=== PATIENT | female | born 1970 | race Caucasian/White ===

== ENCOUNTER 2016-03-09 18:48 | Emergency (ER) | payer OTHER ==
[~2016-03-09] VITALS: Wt 86.2 kg
[~2016-03-09 18:48] MED LIST: ANAPROX DS550 MG PO; AUGMENTIN 875 M1 TAB PO; BACTRIM DS 8001 TA1 PO; CETIRIZINE10 MG PO; CHEWABLE ASPIRI81 MG PO; CIPRO500 MG PO; CIPROFLOXACIN500 MG PO; CLARITIN-D 12 H1 TAB PO; CLARITIN10 MG PO; CORTISPORIN 1%-10 M1 OT; DAYPRO600 M1 PO; DIFLUCAN150 MG PO; DOXYCYCLINE HY100 M3 PO; DOXYCYCLINE MO100 MG PO; DOXYCYCLINE100 M4 PO; DOXYCYCLINE50 MG PO; DUONEB 3 MG/3 ML3 M1 INH; EES400 MG PO; FLONASE 0.05% 121 EA NAS; IBU800 M1 PO; LOTRIMIN 1%15 GM TP; MACROBID100 M1 PO; MOBIC15 MG PO; MOBIC7.5 MG PO; MOTRIN600 MG PO; MOTRIN800 MG PO; Motrin,Rufen800 MG PO; NAPROXEN550 MG PO; NIACIN ER500 MG PO; PHENERGAN W/ DE30 ML PO; PHENERGAN W/DM120 ML PO; PREDNICOT10 MG PO; PROAIR HFA0.09 MG/AC INH; ROBAXIN750 MG PO; SIMVASTATIN20 MG PO; SINGULAIR10 MG PO; TRAMADOL HCL50 MG PO; VITAMINS; ZITHROMAX Z PA250 MG PO; ZITHROMAX250 MG PO; Zofran4 MG PO
[2016-03-09] MEDS ORDERED: PREDNISONE10 MG PO (18:56)
[2016-03-09] MEDS ORDERED: CLARITIN-D 12 H1 TAB PO (19:35)
[2016-03-09] MEDS ORDERED: ZITHROMAX250 MG PO (19:35)
[2016-03-13] MEDS ORDERED: BACTRIM DS 8001 TA1 PO (18:57)
== END 2016-03-09 19:44 | disposition home or self-care (01) ==
LOC: ED 18:48
DX: J01.01 Acute recurrent maxillary sinusitis (principal); Z88.0 Allergy status to penicillin; Z88.8 Allergy status to other drugs, medicaments and biological substances; Z90.710 Acquired absence of both cervix and uterus

== ENCOUNTER 2016-06-29 15:45 | Emergency (ER) | payer OTHER ==
[~2016-06-29] VITALS: Ht 157.4 cm; Wt 86.2 kg
[~2016-06-29 15:45] MED LIST changes: +PREDNISONE10 MG PO
[2016-06-29] MEDS ORDERED: MEDROL DOSEPAK4 MG PO (17:01)
[2016-06-29] MEDS ORDERED: CYCLOBENZAPRINE10 MG PO (17:01)
[2016-06-29] MEDS ORDERED: NAPROSYN500 MG PO (17:01)
== END 2016-06-29 17:19 | disposition home or self-care (01) ==
LOC: ED 15:45
DX: S39.012A Strain of muscle, fascia and tendon of lower back, initial encounter (principal); Z88.0 Allergy status to penicillin; Z88.8 Allergy status to other drugs, medicaments and biological substances; Z79.899 Other long term (current) drug therapy; X58.XXXA Exposure to other specified factors, initial encounter; Y93.89 Activity, other specified; Y92.9 Unspecified place or not applicable; Y99.9 Unspecified external cause status

== ENCOUNTER 2016-10-27 15:28 | Emergency (ER) | payer OTHER ==
[~2016-10-27] VITALS: Ht 157.4 cm; Wt 88.5 kg
[~2016-10-27 15:28] MED LIST changes: +CYCLOBENZAPRINE10 MG PO; +MEDROL DOSEPAK4 MG PO; +NAPROSYN500 MG PO
== END 2016-10-27 17:39 | disposition home or self-care (01) ==
LOC: ED 15:28
DX: M25.561 Pain in right knee (principal); Z88.0 Allergy status to penicillin; Z88.8 Allergy status to other drugs, medicaments and biological substances

== ENCOUNTER → 2016-11-11 | Outpatient (CLI) | payer OTHER | END | disposition home or self-care (01) | LOC: RAD 15:45 | DX: M25.78 Osteophyte, vertebrae (principal); M54.2 Cervicalgia; M46.02 Spinal enthesopathy, cervical region ==

== ENCOUNTER 2016-12-27 15:52 | Emergency (ER) | payer OTHER ==
[~2016-12-27] VITALS: Wt 72.6 kg
== END 2016-12-27 17:42 | disposition home or self-care (01) ==
LOC: ED 15:52
DX: S13.4XXA Sprain of ligaments of cervical spine, initial encounter (principal); R51 Headache; Z88.0 Allergy status to penicillin; Z88.8 Allergy status to other drugs, medicaments and biological substances; Z79.899 Other long term (current) drug therapy; Z90.710 Acquired absence of both cervix and uterus; V49.69XA Unspecified car occupant injured in collision with other motor vehicles in traffic accident, initial encounter; Y93.89 Activity, other specified; Y92.89 Other specified places as the place of occurrence of the external cause; Y99.8 Other external cause status

== ENCOUNTER → 2017-03-11 | Outpatient (CLI) | payer OTHER | END | disposition home or self-care (01) | LOC: MAMMO 15:47 | DX: Z12.31 Encounter for screening mammogram for malignant neoplasm of breast (principal) ==

== ENCOUNTER → 2017-04-01 | Outpatient (CLI) | payer OTHER | END | disposition home or self-care (01) | LOC: MRI 03-31 09:00 | DX: M48.02 Spinal stenosis, cervical region (principal); M50.821 Other cervical disc disorders at C4-C5 level; M50.823 Other cervical disc disorders at C6-C7 level ==

== ENCOUNTER 2017-05-09 20:01 | Emergency (ER) | payer OTHER ==
[~2017-05-09] VITALS: Ht 157.4 cm; Wt 83.9 kg
== END 2017-05-09 20:34 | disposition home or self-care (01) ==
LOC: ED 20:01
DX: R19.7 Diarrhea, unspecified (principal); Z98.51 Tubal ligation status; Z90.710 Acquired absence of both cervix and uterus; Z98.890 Other specified postprocedural states; Z79.899 Other long term (current) drug therapy; Z88.0 Allergy status to penicillin; Z88.8 Allergy status to other drugs, medicaments and biological substances

== ENCOUNTER 2017-08-17 16:08 | Emergency (ER) | payer OTHER ==
[~2017-08-17] VITALS: Ht 157.4 cm; Wt 87.1 kg
[2017-08-17] MEDS ORDERED: IBUPROFEN600 MG PO (16:37)
[2017-08-17] MEDS ORDERED: DOXYCYCLINE100 M3 PO (16:37)
== END 2017-08-17 18:19 | disposition home or self-care (01) ==
LOC: ED 16:08
DX: S90.01XA Contusion of right ankle, initial encounter (principal); Z88.0 Allergy status to penicillin; Z88.8 Allergy status to other drugs, medicaments and biological substances; Z79.899 Other long term (current) drug therapy; W22.8XXA Striking against or struck by other objects, initial encounter; Y93.89 Activity, other specified; Y92.89 Other specified places as the place of occurrence of the external cause; Y99.8 Other external cause status

== ENCOUNTER 2017-09-01 22:37 | Emergency (ER) | payer OTHER ==
[~2017-09-01] VITALS: Ht 157.4 cm; Wt 86.2 kg
[~2017-09-01 22:37] MED LIST changes: +DOXYCYCLINE100 M3 PO; +IBUPROFEN600 MG PO
[2017-09-01] MEDS ORDERED: CLINDAMYCIN HC300 MG PO (23:16)
== END 2017-09-01 23:20 | disposition home or self-care (01) ==
LOC: ED 22:37
DX: J02.0 Streptococcal pharyngitis (principal); R51 Headache; Z98.890 Other specified postprocedural states; Z90.710 Acquired absence of both cervix and uterus; Z98.51 Tubal ligation status; Z88.0 Allergy status to penicillin; Z88.6 Allergy status to analgesic agent

== ENCOUNTER 2017-09-06 19:10 | Emergency (ER) | payer OTHER ==
[~2017-09-06] VITALS: Ht 157.4 cm; Wt 86.2 kg
[~2017-09-06 19:10] MED LIST changes: +CLINDAMYCIN HC300 MG PO
[2017-09-06] MEDS ORDERED: ZYRTEC10 MG PO (19:23)
== END 2017-09-06 20:10 | disposition home or self-care (01) ==
LOC: ED 19:10
DX: J02.0 Streptococcal pharyngitis (principal); Z98.51 Tubal ligation status; Z90.710 Acquired absence of both cervix and uterus; Z98.890 Other specified postprocedural states; Z79.899 Other long term (current) drug therapy; Z88.0 Allergy status to penicillin; Z88.8 Allergy status to other drugs, medicaments and biological substances

== ENCOUNTER 2017-10-30 17:59 | Emergency (ER) | payer OTHER ==
[~2017-10-30] VITALS: Ht 157.4 cm; Wt 85.3 kg
[~2017-10-30 17:59] MED LIST changes: +ZYRTEC10 MG PO
[2017-10-30] MEDS ORDERED: MUCINEX FAST-M1 EAC5 PO (18:42)
[2017-10-30] MEDS ORDERED: FLONASE ALLERG9.9 ML NAS (18:42)
[2017-10-30] MEDS ORDERED: Zofran4 MG SL (18:42)
[2017-10-30] MEDS ORDERED: PREDNISONE20 M1 PO (18:42)
== END 2017-10-30 19:01 | disposition home or self-care (01) ==
LOC: ED 17:59
DX: J06.9 Acute upper respiratory infection, unspecified (principal); H92.03 Otalgia, bilateral; Z88.0 Allergy status to penicillin; Z88.8 Allergy status to other drugs, medicaments and biological substances; Z79.899 Other long term (current) drug therapy

== ENCOUNTER 2017-11-23 15:38 | Emergency (ER) | payer OTHER ==
[~2017-11-23] VITALS: Ht 157.4 cm; Wt 84.4 kg
[~2017-11-23 15:38] MED LIST changes: +FLONASE ALLERG9.9 ML NAS; +MUCINEX FAST-M1 EAC5 PO; +PREDNISONE20 M1 PO; +Zofran4 MG SL
[2017-11-23] MEDS ORDERED: KETOROLAC10 MG PO (18:13)
== END 2017-11-23 18:35 | disposition home or self-care (01) ==
LOC: ED 15:38
DX: S39.012A Strain of muscle, fascia and tendon of lower back, initial encounter (principal); Z88.0 Allergy status to penicillin; Z88.8 Allergy status to other drugs, medicaments and biological substances; Z79.899 Other long term (current) drug therapy; Z98.51 Tubal ligation status; Z90.710 Acquired absence of both cervix and uterus; Z98.890 Other specified postprocedural states; W01.0XXA Fall on same level from slipping, tripping and stumbling without subsequent striking against object, initial encounter; Y93.89 Activity, other specified; Y92.89 Other specified places as the place of occurrence of the external cause; Y99.8 Other external cause status

== ENCOUNTER → 2017-12-02 | Outpatient (CLI) | payer OTHER ==
[~2017-12-02] MED LIST changes: +KETOROLAC10 MG PO
[2017-12-02 08:14] LABS: BASO % 0.6 % (0.0-1.0); EOS # 0.4 10*3/uL (0.0-0.4); EOS % 8.2 % (1.0-4.0); HEMATOCRIT 38.2 % (37.0-47.0); HEMOGLOBIN 11.9 g/dl (12.0-16.0); LYMPH # 1.2 10*3/uL (1.3-4.4); MEAN CELL VOLUME 83.2 fl (81.0-99.0); MEAN CORPUSCULAR HGB 25.9 pg (27.0-31.0); MEAN CORPUSCULAR HGB CONC 31.2 g/dl (33.0-37.0); MEAN PLATELET VOLUME 12.8 fl (9.6-12.3); MONO # 0.5 10*3/uL (0.1-1.0); MONO % 10.5 % (3.0-9.0); NEUT # 2.9 10*3/uL (2.3-7.9); NEUT % 57.5 % (47.0-73.0); PLATELET COUNT AUTOMATED 211 10*3/uL (130-400); RED BLOOD COUNT 4.59 10*6/uL (4.10-5.10); RED CELL DISTRI WIDTH 13.3 % (0-14.5); WHITE BLOOD COUNT 5.1 10*3/uL (4.8-10.8)
[2017-12-02 08:38] LABS: ALBUMIN 3.4 gm/dl (3.1-4.5); BUN 12 mg/dl (7-24); CHLORIDE 107 mmol/L (98-107); CHOLESTEROL 132 mg/dL (<200); CREATININE 0.68 mg/dL (0.55-1.02); HDL CHOLESTEROL 46 mg/dl (40-60); LDL CHOLESTEROL 67 mg/dL (9-159); POTASSIUM 4.4 mmol/L (3.5-5.1); SGOT/AST 16 IU/L (3-35); SGPT/ALT 21 U/L (12-78); SODIUM 140 mmol/L (136-145); TOTAL PROTEIN 6.6 gm/dL (6.4-8.2); TRIGLYCERIDES 94 mg/dl (<150); VLDL CHOLESTEROL 19 mg/dL (6-40)
[2017-12-02 08:39] LABS: ALKALINE PHOSPHATASE 84 U/L (45-117)
== END | disposition home or self-care (01) ==
LOC: LAB 07:33
PROVIDERS: Nurse Practitioner Family
DX: E78.49 Other hyperlipidemia (principal); R10.13 Epigastric pain; J30.9 Allergic rhinitis, unspecified; E66.9 Obesity, unspecified

== ENCOUNTER → 2017-12-04 | Outpatient (CLI) | payer OTHER ==
[2017-12-04 15:16] LABS: TOTAL IRON BINDING CAPACITY 324 ug/dl (250-450)
[2017-12-04 15:20] LABS: IRON 32 ug/dL (50-170)
[2017-12-04 16:05] LABS: FERRITIN 31.3 ng/mL (10.0-291.0)
== END | disposition home or self-care (01) ==
LOC: LAB 14:43
PROVIDERS: Nurse Practitioner Family
DX: D50.9 Iron deficiency anemia, unspecified (principal)

== ENCOUNTER 2018-06-05 07:35 | Emergency (ER) | payer OTHER ==
[~2018-06-05] VITALS: Ht 157.4 cm; Wt 84.4 kg
[2018-06-05] MEDS ORDERED: MUCINEX DM 30/61 TAB PO (10:01)
[2018-06-05] MEDS ORDERED: FLONASE ALLERG9.9 ML NAS (10:01)
[2018-09-06] MEDS ORDERED: CEPHALEXIN500 M1 PO (18:17)
[2018-09-06] MEDS ORDERED: ANTIBIOTIC28.4 GM T (18:17)
== END 2018-06-05 10:12 | disposition home or self-care (01) ==
LOC: ED 07:35
DX: B34.9 Viral infection, unspecified (principal); Z88.0 Allergy status to penicillin; Z88.8 Allergy status to other drugs, medicaments and biological substances; Z79.899 Other long term (current) drug therapy; Z79.2 Long term (current) use of antibiotics; Z90.710 Acquired absence of both cervix and uterus

== ENCOUNTER → 2018-07-09 | Outpatient (CLI) | payer OTHER ==
[~2018-07-09] MED LIST changes: +ANTIBIOTIC28.4 GM T; +CEPHALEXIN500 M1 PO; +MUCINEX DM 30/61 TAB PO
== END | disposition home or self-care (01) ==
LOC: RAD 12:25
DX: M19.071 Primary osteoarthritis, right ankle and foot (principal)

== ENCOUNTER 2018-10-29 18:43 | Emergency (ER) | payer OTHER ==
[~2018-10-29] VITALS: Ht 170.1 cm; Wt 77.1 kg
[2018-10-29 20:15] LABS: ALBUMIN 3.7 gm/dl (3.1-4.5); ALKALINE PHOSPHATASE 114 U/L (45-117); BUN 10 mg/dl (7-24); CHLORIDE 106 mmol/L (98-107); CREATININE 0.77 mg/dL (0.55-1.02); LIPASE 132 U/L (73-393); POTASSIUM 3.8 mmol/L (3.5-5.1); SGOT/AST 21 IU/L (3-35); SGPT/ALT 27 U/L (12-78); SODIUM 140 mmol/L (136-145); TOTAL PROTEIN 7.2 gm/dL (6.4-8.2)
== END 2018-10-29 20:44 | disposition home or self-care (01) ==
LOC: ED 18:43
PROVIDERS: Physician Assistant
DX: K59.00 Constipation, unspecified (principal); Z98.51 Tubal ligation status; Z90.710 Acquired absence of both cervix and uterus; Z98.890 Other specified postprocedural states; Z79.899 Other long term (current) drug therapy; Z88.0 Allergy status to penicillin; Z88.8 Allergy status to other drugs, medicaments and biological substances

== ENCOUNTER → 2018-11-26 | Outpatient (CLI) | payer OTHER ==
[2018-11-26 11:02] LABS: BASO # 0.1 10*3/uL (0.0-0.1); EOS # 0.3 10*3/uL (0.0-0.4); EOS % 5.4 % (1.0-4.0); HEMATOCRIT 40.9 % (37.0-47.0); HEMOGLOBIN 13.2 g/dl (12.0-16.0); LYMPH # 1.3 10*3/uL (1.3-4.4); LYMPH % 26.3 % (27.0-41.0); MEAN CELL VOLUME 85.6 fl (81.0-99.0); MEAN CORPUSCULAR HGB 27.6 pg (27.0-31.0); MEAN CORPUSCULAR HGB CONC 32.3 g/dl (33.0-37.0); MEAN PLATELET VOLUME 13.4 fl (9.6-12.3); MONO # 0.4 10*3/uL (0.1-1.0); NEUT % 59.1 % (47.0-73.0); PLATELET COUNT AUTOMATED 196 10*3/uL (130-400); RED BLOOD COUNT 4.78 10*6/uL (4.10-5.10); RED CELL DISTRI WIDTH 12.4 % (0-14.5); RETICULOCYTE % 1.84 % (0.50-2.50)
[2018-11-26 14:07] LABS: ALBUMIN 3.7 gm/dl (3.1-4.5); ALKALINE PHOSPHATASE 95 U/L (45-117); BUN 10 mg/dl (7-24); CHLORIDE 108 mmol/L (98-107); CHOLESTEROL 154 mg/dL (<200); CREATININE 0.71 mg/dL (0.55-1.02); HDL CHOLESTEROL 51 mg/dl (40-60); IRON 82 ug/dL (50-170); LDL CHOLESTEROL 83 mg/dL (9-159); POTASSIUM 4.3 mmol/L (3.5-5.1); SGOT/AST 28 IU/L (3-35); SGPT/ALT 31 U/L (12-78); SODIUM 140 mmol/L (136-145); TOTAL IRON BINDING CAPACITY 407 ug/dl (250-450); TOTAL PROTEIN 7.3 gm/dL (6.4-8.2); TRIGLYCERIDES 98 mg/dl (<150); VLDL CHOLESTEROL 20 mg/dL (6-40)
== END | disposition home or self-care (01) ==
LOC: LAB 10:34
PROVIDERS: Nurse Practitioner Family
DX: E78.49 Other hyperlipidemia (principal); D50.8 Other iron deficiency anemias; E55.9 Vitamin D deficiency, unspecified; D72.1 Eosinophilia; E87.8 Other disorders of electrolyte and fluid balance, not elsewhere classified; G89.29 Other chronic pain; J30.9 Allergic rhinitis, unspecified; R10.13 Epigastric pain; E66.9 Obesity, unspecified

== ENCOUNTER 2019-02-10 01:38 | Emergency (ER) | payer OTHER ==
[~2019-02-10] VITALS: Ht 157.4 cm; Wt 83.9 kg
[2019-02-10] MEDS ORDERED: TRAMADOL HCL50 MG PO (02:49)
[2019-02-10] MEDS ORDERED: ZITHROMAX250 MG PO (02:49)
== END 2019-02-10 03:25 | disposition home or self-care (01) ==
LOC: ED 01:38
DX: J01.00 Acute maxillary sinusitis, unspecified (principal); J20.9 Acute bronchitis, unspecified; E78.00 Pure hypercholesterolemia, unspecified; Z88.0 Allergy status to penicillin; Z88.8 Allergy status to other drugs, medicaments and biological substances; Z79.899 Other long term (current) drug therapy

== ENCOUNTER 2019-02-12 16:05 | Emergency (ER) | payer OTHER ==
[~2019-02-12] VITALS: Ht 157.4 cm; Wt 83.9 kg
[2019-02-12 17:08] LABS: BASO % 0.9 % (0.0-1.0); EOS # 0.3 10*3/uL (0.0-0.4); EOS % 6.4 % (1.0-4.0); HEMATOCRIT 36.1 % (37.0-47.0); HEMOGLOBIN 11.3 g/dl (12.0-16.0); LYMPH # 0.9 10*3/uL (1.3-4.4); LYMPH % 20.7 % (27.0-41.0); MEAN CELL VOLUME 87.2 fl (81.0-99.0); MEAN CORPUSCULAR HGB 27.3 pg (27.0-31.0); MEAN CORPUSCULAR HGB CONC 31.3 g/dl (33.0-37.0); MEAN PLATELET VOLUME 12.9 fl (9.6-12.3); MONO # 0.3 10*3/uL (0.1-1.0); MONO % 7.3 % (3.0-9.0); NEUT # 2.9 10*3/uL (2.3-7.9); NEUT % 64.3 % (47.0-73.0); PLATELET COUNT AUTOMATED 176 10*3/uL (130-400); RED BLOOD COUNT 4.14 10*6/uL (4.10-5.10); RED CELL DISTRI WIDTH 13.1 % (0-14.5); WHITE BLOOD COUNT 4.5 10*3/uL (4.8-10.8)
[2019-02-12 17:23] LABS: ACT PARTIAL THROMBO TIME 27.8 SECONDS (20.0-32.1); ALBUMIN 3.2 gm/dl (3.1-4.5); ALKALINE PHOSPHATASE 84 U/L (45-117); BUN 8 mg/dl (7-24); CHLORIDE 113 mmol/L (98-107); CREATININE 0.68 mg/dL (0.55-1.02); LIPASE 94 U/L (73-393); POTASSIUM 3.8 mmol/L (3.5-5.1); SGOT/AST 12 IU/L (3-35); SGPT/ALT 21 U/L (12-78); SODIUM 146 mmol/L (136-145); TOTAL PROTEIN 6.1 gm/dL (6.4-8.2)
[2019-02-12 17:25] LABS: TROPONIN I < 0.015 ng/ml (<0.045)
[2019-02-12] MEDS ORDERED: CEPACOL SORE T1 EACH MM (19:11)
[2019-02-12] MEDS ORDERED: MEDROL DOSEPAK4 MG PO (19:11)
== END 2019-02-12 19:31 | disposition home or self-care (01) ==
LOC: ED 16:05
PROVIDERS: Nurse Practitioner Family
DX: J40 Bronchitis, not specified as acute or chronic (principal); E78.00 Pure hypercholesterolemia, unspecified; Z88.0 Allergy status to penicillin; Z88.8 Allergy status to other drugs, medicaments and biological substances; Z79.899 Other long term (current) drug therapy

== ENCOUNTER 2019-03-06 00:27 | Emergency (ER) | payer OTHER ==
[~2019-03-06] VITALS: Ht 157.4 cm; Wt 83.9 kg
[~2019-03-06 00:27] MED LIST changes: +CEPACOL SORE T1 EACH MM
[2019-03-06] MEDS ORDERED: ZITHROMAX250 MG PO (00:56)
[2019-03-06] MEDS ORDERED: FLONASE ALLERG9.9 ML NAS (00:56)
== END 2019-03-06 01:04 | disposition home or self-care (01) ==
LOC: ED 00:27
DX: J01.90 Acute sinusitis, unspecified (principal); R13.10 Dysphagia, unspecified; E78.00 Pure hypercholesterolemia, unspecified; Z88.0 Allergy status to penicillin; Z88.8 Allergy status to other drugs, medicaments and biological substances; Z79.899 Other long term (current) drug therapy; Z79.2 Long term (current) use of antibiotics; Z90.710 Acquired absence of both cervix and uterus

== ENCOUNTER 2019-04-14 15:25 | Emergency (ER) | payer OTHER ==
[~2019-04-14] VITALS: Ht 157.4 cm; Wt 83.9 kg
== END 2019-04-14 16:44 | disposition home or self-care (01) ==
LOC: ED 15:25
DX: M79.661 Pain in right lower leg (principal); Z88.0 Allergy status to penicillin; Z88.8 Allergy status to other drugs, medicaments and biological substances; Z79.899 Other long term (current) drug therapy

== ENCOUNTER 2019-04-21 11:15 | Emergency (ER) | payer OTHER ==
[~2019-04-21] VITALS: Ht 157.4 cm; Wt 83.9 kg
[2019-04-21] MEDS ORDERED: OMNICEF300 MG PO (12:06)
== END 2019-04-21 12:10 | disposition home or self-care (01) ==
LOC: ED 11:15
DX: J01.90 Acute sinusitis, unspecified (principal); E78.00 Pure hypercholesterolemia, unspecified; Z88.0 Allergy status to penicillin; Z88.8 Allergy status to other drugs, medicaments and biological substances; Z79.899 Other long term (current) drug therapy; Z79.2 Long term (current) use of antibiotics

== ENCOUNTER 2019-04-22 23:30 | Emergency (ER) | payer OTHER ==
[~2019-04-22] VITALS: Ht 157.4 cm; Wt 83.9 kg
[~2019-04-22 23:30] MED LIST changes: +OMNICEF300 MG PO
== END 2019-04-23 01:53 | disposition home or self-care (01) ==
LOC: ED 23:30
DX: S86.911A Strain of unspecified muscle(s) and tendon(s) at lower leg level, right leg, initial encounter (principal); E78.00 Pure hypercholesterolemia, unspecified; M19.90 Unspecified osteoarthritis, unspecified site; Z88.0 Allergy status to penicillin; Z88.8 Allergy status to other drugs, medicaments and biological substances; Z79.899 Other long term (current) drug therapy; Z90.710 Acquired absence of both cervix and uterus; X50.1XXA Overexertion from prolonged static or awkward postures, initial encounter; Y93.89 Activity, other specified; Y92.69 Other specified industrial and construction area as the place of occurrence of the external cause; Y99.8 Other external cause status

== ENCOUNTER 2019-06-20 00:52 | Emergency (ER) | payer OTHER ==
[~2019-06-20] VITALS: Ht 157.4 cm; Wt 91.6 kg
[2019-06-20] MEDS ORDERED: ULTRAM50 MG PO (02:28)
[2019-06-20] MEDS ORDERED: CEFDINIR300 MG PO (02:48)
== END 2019-06-20 02:51 | disposition home or self-care (01) ==
LOC: ED 00:52
DX: J02.9 Acute pharyngitis, unspecified (principal); E78.00 Pure hypercholesterolemia, unspecified; Z98.890 Other specified postprocedural states; Z90.711 Acquired absence of uterus with remaining cervical stump; Z98.51 Tubal ligation status; Z88.0 Allergy status to penicillin; Z88.8 Allergy status to other drugs, medicaments and biological substances; Z79.2 Long term (current) use of antibiotics; Z79.899 Other long term (current) drug therapy; M54.2 Cervicalgia

== ENCOUNTER 2019-06-24 22:09 | Emergency (ER) | payer OTHER ==
[~2019-06-24] VITALS: Ht 157.4 cm; Wt 90.7 kg
[~2019-06-24 22:09] MED LIST changes: +CEFDINIR300 MG PO; +ULTRAM50 MG PO
[2019-06-24] MEDS ORDERED: ROBAXIN-750750 MG PO (22:50)
[2019-06-24] MEDS ORDERED: PREDNISONE50 MG PO (22:50)
== END 2019-06-24 23:34 | disposition home or self-care (01) ==
LOC: ED 22:09
DX: S29.011A Strain of muscle and tendon of front wall of thorax, initial encounter (principal); E78.00 Pure hypercholesterolemia, unspecified; Z88.0 Allergy status to penicillin; Z88.8 Allergy status to other drugs, medicaments and biological substances; Z79.899 Other long term (current) drug therapy; X58.XXXA Exposure to other specified factors, initial encounter; Y93.89 Activity, other specified; Y92.89 Other specified places as the place of occurrence of the external cause; Y99.8 Other external cause status

== ENCOUNTER 2019-12-08 23:20 | Emergency (ER) | payer OTHER ==
[~2019-12-08] VITALS: Ht 157.5 cm; Wt 88.5 kg
[~2019-12-08 23:20] MED LIST changes: +PREDNISONE50 MG PO; +ROBAXIN-750750 MG PO
[2019-12-09] MEDS ORDERED: ZITHROMAX250 MG PO (00:19)
== END 2019-12-09 00:29 | disposition home or self-care (01) ==
LOC: ED 23:20
DX: J32.9 Chronic sinusitis, unspecified (principal); E78.00 Pure hypercholesterolemia, unspecified; Z88.0 Allergy status to penicillin; Z88.8 Allergy status to other drugs, medicaments and biological substances; Z79.899 Other long term (current) drug therapy

== ENCOUNTER 2019-12-23 18:44 | Emergency (ER) | payer OTHER ==
[~2019-12-23] VITALS: Ht 157.4 cm; Wt 88.5 kg
[2019-12-23 19:23] LABS: BASO % 0.5 % (0.0-1.0); EOS # 0.2 10*3/uL (0.0-0.4); HEMATOCRIT 36.4 % (37.0-47.0); LYMPH # 1.1 10*3/uL (1.3-4.4); LYMPH % 18.8 % (27.0-41.0); MEAN CELL VOLUME 83.1 fl (81.0-99.0); MEAN CORPUSCULAR HGB CONC 31.3 g/dl (33.0-37.0); MONO # 0.5 10*3/uL (0.1-1.0); MONO % 9.2 % (3.0-9.0); NEUT # 3.8 10*3/uL (2.3-7.9); NEUT % 68.3 % (47.0-73.0); PLATELET COUNT AUTOMATED 174 10*3/uL (130-400); RED BLOOD COUNT 4.38 10*6/uL (4.10-5.10); RED CELL DISTRI WIDTH 13.1 % (0-14.5); WHITE BLOOD COUNT 5.6 10*3/uL (4.8-10.8)
[2019-12-23 19:31] LABS: ACT PARTIAL THROMBO TIME 27.6 SECONDS (20.0-32.1); INTERNATIONAL NORM RATIO 1.1 (2.0-3.5)
[2019-12-23 19:41] LABS: ALBUMIN 3.6 gm/dl (3.1-4.5); ALKALINE PHOSPHATASE 99 U/L (45-117); BUN 14 mg/dl (7-24); CHLORIDE 109 mmol/L (98-107); CREATININE 0.78 mg/dL (0.55-1.02); POTASSIUM 3.6 mmol/L (3.5-5.1); SGOT/AST 18 IU/L (3-35); SGPT/ALT 23 U/L (12-78); SODIUM 144 mmol/L (136-145); TOTAL PROTEIN 6.8 gm/dL (6.4-8.2)
[2019-12-23 19:45] LABS: TROPONIN I < 0.015 ng/ml (<0.045)
== END 2019-12-23 22:00 | disposition home or self-care (01) ==
LOC: ED 18:44
PROVIDERS: Emergency Medicine
DX: R07.89 Other chest pain (principal); Z79.899 Other long term (current) drug therapy

== ENCOUNTER 2020-01-11 21:24 | Emergency (ER) | payer OTHER ==
[2020-01-11 22:17] LABS: BASO # 0.1 10*3/uL (0.0-0.1); EOS # 0.2 10*3/uL (0.0-0.4); HEMATOCRIT 38.7 % (37.0-47.0); LYMPH # 0.8 10*3/uL (1.3-4.4); LYMPH % 15.4 % (27.0-41.0); MEAN CELL VOLUME 83.9 fl (81.0-99.0); MEAN CORPUSCULAR HGB 25.4 pg (27.0-31.0); MEAN CORPUSCULAR HGB CONC 30.2 g/dl (33.0-37.0); MEAN PLATELET VOLUME 13.1 fl (9.6-12.3); MONO # 0.3 10*3/uL (0.1-1.0); MONO % 5.5 % (3.0-9.0); NEUT # 3.9 10*3/uL (2.3-7.9); NEUT % 74.1 % (47.0-73.0); PLATELET COUNT AUTOMATED 199 10*3/uL (130-400); RED BLOOD COUNT 4.61 10*6/uL (4.10-5.10); RED CELL DISTRI WIDTH 13.2 % (0-14.5); WHITE BLOOD COUNT 5.3 10*3/uL (4.8-10.8)
[2020-01-11 22:31] LABS: ALBUMIN 3.5 gm/dl (3.1-4.5); ALKALINE PHOSPHATASE 103 U/L (45-117); BUN 11 mg/dl (7-24); CHLORIDE 110 mmol/L (98-107); CREATININE 0.73 mg/dL (0.55-1.02); POTASSIUM 3.7 mmol/L (3.5-5.1); SGOT/AST 18 IU/L (3-35); SGPT/ALT 25 U/L (12-78); SODIUM 143 mmol/L (136-145); TOTAL PROTEIN 6.5 gm/dL (6.4-8.2)
[2020-01-11] MEDS ORDERED: ZITHROMAX250 MG PO (23:16)
[2020-01-11] MEDS ORDERED: PREDNISONE50 MG PO (23:16)
== END 2020-01-11 23:38 | disposition home or self-care (01) ==
LOC: ED 21:24
PROVIDERS: Internal Medicine
DX: J40 Bronchitis, not specified as acute or chronic (principal); Z88.0 Allergy status to penicillin; Z88.8 Allergy status to other drugs, medicaments and biological substances; Z79.899 Other long term (current) drug therapy

== ENCOUNTER 2020-01-18 16:03 | Emergency (ER) | payer OTHER ==
[~2020-01-18] VITALS: Ht 157.4 cm; Wt 88.5 kg
[2020-01-18 17:43] LABS: BASO # 0.1 10*3/uL (0.0-0.1); BASO % 0.8 % (0.0-1.0); EOS # 0.6 10*3/uL (0.0-0.4); EOS % 9.6 % (1.0-4.0); HEMATOCRIT 39.6 % (37.0-47.0); LYMPH # 1.1 10*3/uL (1.3-4.4); LYMPH % 17.8 % (27.0-41.0); MEAN CELL VOLUME 82.7 fl (81.0-99.0); MEAN CORPUSCULAR HGB 25.3 pg (27.0-31.0); MEAN CORPUSCULAR HGB CONC 30.6 g/dl (33.0-37.0); MEAN PLATELET VOLUME 12.8 fl (9.6-12.3); MONO # 0.6 10*3/uL (0.1-1.0); MONO % 9.4 % (3.0-9.0); NEUT # 3.8 10*3/uL (2.3-7.9); NEUT % 62.2 % (47.0-73.0); PLATELET COUNT AUTOMATED 251 10*3/uL (130-400); RED BLOOD COUNT 4.79 10*6/uL (4.10-5.10); RED CELL DISTRI WIDTH 13.6 % (0-14.5); WHITE BLOOD COUNT 6.1 10*3/uL (4.8-10.8)
[2020-01-18 17:56] LABS: ALBUMIN 3.3 gm/dl (3.1-4.5); ALKALINE PHOSPHATASE 91 U/L (45-117); BUN 12 mg/dl (7-24); CHLORIDE 107 mmol/L (98-107); CREATININE 0.69 mg/dL (0.55-1.02); POTASSIUM 3.7 mmol/L (3.5-5.1); SGOT/AST 9 IU/L (3-35); SGPT/ALT 24 U/L (12-78); SODIUM 141 mmol/L (136-145); TOTAL PROTEIN 6.3 gm/dL (6.4-8.2)
[2020-01-18 17:58] LABS: TROPONIN I < 0.015 ng/ml (<0.045)
== END 2020-01-18 18:58 | disposition home or self-care (01) ==
LOC: ED 16:03
PROVIDERS: Family Medicine
DX: B34.9 Viral infection, unspecified (principal); F17.200 Nicotine dependence, unspecified, uncomplicated; Z20.828 Contact with and (suspected) exposure to other viral communicable diseases; Z88.0 Allergy status to penicillin; Z88.8 Allergy status to other drugs, medicaments and biological substances; Z79.899 Other long term (current) drug therapy; Z79.2 Long term (current) use of antibiotics; Z98.890 Other specified postprocedural states; Z98.51 Tubal ligation status; Z90.710 Acquired absence of both cervix and uterus

== ENCOUNTER 2020-01-23 22:42 | Emergency (ER) | payer OTHER ==
[~2020-01-23] VITALS: Ht 157.4 cm; Wt 88.5 kg
[2020-01-24] MEDS ORDERED: PROVENTIL HFA6.7 GM INH (00:02)
== END 2020-01-24 00:40 | disposition home or self-care (01) ==
LOC: ED 22:42
DX: J20.8 Acute bronchitis due to other specified organisms (principal); E78.00 Pure hypercholesterolemia, unspecified; Z88.0 Allergy status to penicillin; Z88.8 Allergy status to other drugs, medicaments and biological substances; Z79.2 Long term (current) use of antibiotics; Z79.899 Other long term (current) drug therapy; Z98.890 Other specified postprocedural states; Z98.51 Tubal ligation status; Z90.710 Acquired absence of both cervix and uterus

== ENCOUNTER → 2020-03-01 | Outpatient (CLI) | payer OTHER ==
[~2020-03-01] MED LIST changes: +PROVENTIL HFA6.7 GM INH
[2020-03-01 09:25] LABS: EOS # 0.2 10*3/uL (0.0-0.4); EOS % 5.3 % (1.0-4.0); HEMATOCRIT 39.1 % (37.0-47.0); LYMPH # 1.3 10*3/uL (1.3-4.4); LYMPH % 31.6 % (27.0-41.0); MEAN CELL VOLUME 83.2 fl (81.0-99.0); MEAN CORPUSCULAR HGB 25.7 pg (27.0-31.0); MEAN CORPUSCULAR HGB CONC 30.9 g/dl (33.0-37.0); MEAN PLATELET VOLUME 13.5 fl (9.6-12.3); MONO # 0.4 10*3/uL (0.1-1.0); MONO % 9.3 % (3.0-9.0); NEUT # 2.2 10*3/uL (2.3-7.9); NEUT % 52.6 % (47.0-73.0); PLATELET COUNT AUTOMATED 185 10*3/uL (130-400); RED CELL DISTRI WIDTH 13.2 % (0-14.5); RETICULOCYTE % 1.86 % (0.50-2.50); WHITE BLOOD COUNT 4.2 10*3/uL (4.8-10.8)
[2020-03-01 09:54] LABS: ALBUMIN 3.6 gm/dl (3.1-4.5); ALKALINE PHOSPHATASE 95 U/L (45-117); BUN 18 mg/dl (7-24); CHLORIDE 110 mmol/L (98-107); CHOLESTEROL 140 mg/dL (<200); CPK 67 U/L (26-192); CREATININE 0.73 mg/dL (0.55-1.02); GAMMA GLUTAMYL TRANSPEPTIDASE 9 U/L (5-55); HDL CHOLESTEROL 60 mg/dl (40-60); IRON 47 ug/dL (50-170); LDL CHOLESTEROL 67 mg/dL (9-159); POTASSIUM 4.1 mmol/L (3.5-5.1); SGOT/AST 20 IU/L (3-35); SGPT/ALT 25 U/L (12-78); SODIUM 141 mmol/L (136-145); TOTAL PROTEIN 6.8 gm/dL (6.4-8.2); TRIGLYCERIDES 64 mg/dl (<150); URIC ACID 4.8 mg/dL (2.6-6.0); VLDL CHOLESTEROL 13 mg/dL (6-40)
[2020-03-01 10:01] LABS: TOTAL IRON BINDING CAPACITY 323 ug/dl (250-450)
[2020-03-01 10:19] LABS: VITAMIN D, 25-HYDROXY 42.7 ng/mL (30-100)
[2020-03-01 10:20] LABS: FERRITIN 72.1 ng/mL (10.0-291.0)
[2020-03-02 07:06] LABS: RHEUMATOID ARTHRITIS FACTOR <10.0 IU/mL (0.0-13.9)
[2020-03-02 14:11] LABS: ANTI-DSDNA ANTIBODIES 3 IU/mL (0-9)
== END | disposition home or self-care (01) ==
LOC: LAB 08:36
PROVIDERS: ATTEND Family Medicine
DX: E78.5 Hyperlipidemia, unspecified (principal); R79.89 Other specified abnormal findings of blood chemistry; R53.83 Other fatigue; E55.9 Vitamin D deficiency, unspecified

== ENCOUNTER → 2020-08-01 | Outpatient (CLI) | payer OTHER | END | disposition home or self-care (01) | LOC: RAD 13:27 | PROVIDERS: ATTEND Family Medicine | DX: M19.032 Primary osteoarthritis, left wrist (principal); M19.90 Unspecified osteoarthritis, unspecified site ==

== ENCOUNTER → 2020-10-23 | Outpatient (CLI) | payer OTHER ==
[2020-10-23 07:56] LABS: BASO % 0.8 % (0.0-1.0); EOS # 0.3 10*3/uL (0.0-0.4); EOS % 6.3 % (1.0-4.0); HEMATOCRIT 39.6 % (37.0-47.0); LYMPH # 1.6 10*3/uL (1.3-4.4); LYMPH % 33.1 % (27.0-41.0); MEAN CELL VOLUME 83.5 fl (81.0-99.0); MEAN CORPUSCULAR HGB 25.9 pg (27.0-31.0); MEAN CORPUSCULAR HGB CONC 31.1 g/dl (33.0-37.0); MEAN PLATELET VOLUME 12.8 fl (9.6-12.3); MONO # 0.5 10*3/uL (0.1-1.0); NEUT # 2.4 10*3/uL (2.3-7.9); NEUT % 49.6 % (47.0-73.0); PLATELET COUNT AUTOMATED 234 10*3/uL (130-400); RED BLOOD COUNT 4.74 10*6/uL (4.10-5.10); RED CELL DISTRI WIDTH 13.2 % (0-14.5); RETICULOCYTE % 1.89 % (0.50-2.50); WHITE BLOOD COUNT 4.8 10*3/uL (4.8-10.8)
[2020-10-23 08:09] LABS: ALBUMIN 3.4 gm/dl (3.1-4.5); ALKALINE PHOSPHATASE 98 U/L (45-117); BUN 21 mg/dl (7-24); CHLORIDE 108 mmol/L (98-107); CHOLESTEROL 159 mg/dL (<200); CREATININE 0.66 mg/dL (0.55-1.02); IRON 61 ug/dL (50-170); LDL CHOLESTEROL 92 mg/dL (9-159); POTASSIUM 4.1 mmol/L (3.5-5.1); SGOT/AST 22 IU/L (3-35); SGPT/ALT 30 U/L (12-78); SODIUM 140 mmol/L (136-145); TOTAL IRON BINDING CAPACITY 308 ug/dl (250-450); TOTAL PROTEIN 6.6 gm/dL (6.4-8.2); TRIGLYCERIDES 84 mg/dl (<150)
[2020-10-23 08:12] LABS: CPK 89 U/L (26-192)
[2020-10-23 08:17] LABS: GAMMA GLUTAMYL TRANSPEPTIDASE 8 U/L (5-55)
[2020-10-23 08:56] LABS: FERRITIN 60.3 ng/mL (10.0-291.0)
== END | disposition home or self-care (01) ==
LOC: LAB 07:41
PROVIDERS: ATTEND Family Medicine
DX: R79.89 Other specified abnormal findings of blood chemistry (principal); R53.83 Other fatigue; E55.9 Vitamin D deficiency, unspecified

== ENCOUNTER 2020-11-26 02:03 | Emergency (ER) | payer OTHER ==
[~2020-11-26] VITALS: Ht 157.4 cm; Wt 81.6 kg
[2020-11-26] MEDS ORDERED: VITAMIN D3250 MC2 PO (02:17)
[2020-11-26] MEDS ORDERED: MOBIC7.5 MG PO (02:17)
[2020-11-26] MEDS ORDERED: DAILY VITAMIN1 EAC3 PO (02:17)
[2020-11-26] MEDS ORDERED: VIBRAMYCIN100 MG PO (04:31)
== END 2020-11-26 05:09 | disposition home or self-care (01) ==
LOC: ED 02:03
DX: J32.9 Chronic sinusitis, unspecified (principal); Z20.822 Contact with and (suspected) exposure to COVID-19; Z88.0 Allergy status to penicillin; Z88.8 Allergy status to other drugs, medicaments and biological substances; Z79.899 Other long term (current) drug therapy

== ENCOUNTER 2021-01-13 00:32 | Emergency (ER) | payer OTHER ==
[~2021-01-13] VITALS: Ht 157.4 cm; Wt 81.6 kg
[~2021-01-13 00:32] MED LIST changes: +DAILY VITAMIN1 EAC3 PO; +VIBRAMYCIN100 MG PO; +VITAMIN D3250 MC2 PO
[2021-01-13] MEDS ORDERED: CLARITHROMYCIN500 MG PO (00:39)
[2021-01-13 01:07] LABS: BASO % 0.3 % (0.0-1.0); EOS # 0.1 10*3/uL (0.0-0.4); EOS % 4.9 % (1.0-4.0); HEMATOCRIT 37.4 % (37.0-47.0); LYMPH # 0.6 10*3/uL (1.3-4.4); LYMPH % 21.7 % (27.0-41.0); MEAN CELL VOLUME 81.1 fl (81.0-99.0); MEAN CORPUSCULAR HGB CONC 32.1 g/dl (33.0-37.0); MEAN PLATELET VOLUME 12.9 fl (9.6-12.3); MONO # 0.3 10*3/uL (0.1-1.0); MONO % 10.8 % (3.0-9.0); NEUT # 1.8 10*3/uL (2.3-7.9); NEUT % 62.3 % (47.0-73.0); PLATELET COUNT AUTOMATED 162 10*3/uL (130-400); RED BLOOD COUNT 4.61 10*6/uL (4.10-5.10); WHITE BLOOD COUNT 2.9 10*3/uL (4.8-10.8)
[2021-01-13 01:21] LABS: ALBUMIN 3.4 gm/dl (3.1-4.5); ALKALINE PHOSPHATASE 98 U/L (45-117); BUN 9 mg/dl (7-24); CHLORIDE 109 mmol/L (98-107); CREATININE 0.77 mg/dL (0.55-1.02); POTASSIUM 3.3 mmol/L (3.5-5.1); SGOT/AST 28 IU/L (3-35); SGPT/ALT 32 U/L (12-78); SODIUM 140 mmol/L (136-145); TOTAL PROTEIN 6.6 gm/dL (6.4-8.2)
== END 2021-01-13 02:14 | disposition home or self-care (01) ==
LOC: ED 00:32
PROVIDERS: Internal Medicine
DX: U07.1 COVID-19 (principal); J12.82 Pneumonia due to coronavirus disease 2019; E87.6 Hypokalemia; Z88.0 Allergy status to penicillin; Z88.8 Allergy status to other drugs, medicaments and biological substances; Z79.899 Other long term (current) drug therapy

== ENCOUNTER → 2021-07-23 | Outpatient (CLI) | payer OTHER ==
[~2021-07-23] MED LIST changes: +CLARITHROMYCIN500 MG PO
[2021-07-23 14:08] LABS: BILIRUBIN Negative (Negative); BLOOD Negative (Negative); CLARITY Cloudy (Clear); COLOR Yellow (Yellow); GLUCOSE Negative (Negative); KETONE Trace (Negative); LEUKO ESTERASE 2+ (Negative); NITRITE Negative (Negative); SPECIFIC GRAVITY 1.025 (1.001-1.030)
[2021-07-23 14:11] LABS: BASO % 0.9 % (0.0-1.0); EOS # 0.3 10*3/uL (0.0-0.4); EOS % 6.6 % (1.0-4.0); HEMATOCRIT 39.6 % (37.0-47.0); MEAN CELL VOLUME 82.8 fl (81.0-99.0); MEAN CORPUSCULAR HGB 26.2 pg (27.0-31.0); MEAN CORPUSCULAR HGB CONC 31.6 g/dl (33.0-37.0); MEAN PLATELET VOLUME 13.1 fl (9.6-12.3); MONO # 0.5 10*3/uL (0.1-1.0); MONO % 9.6 % (3.0-9.0); NEUT # 2.8 10*3/uL (2.3-7.9); NEUT % 60.7 % (47.0-73.0); PLATELET COUNT AUTOMATED 204 10*3/uL (130-400); RED BLOOD COUNT 4.78 10*6/uL (4.10-5.10); RED CELL DISTRI WIDTH 13.1 % (0-14.5); RETICULOCYTE % 1.91 % (0.50-2.50); WHITE BLOOD COUNT 4.7 10*3/uL (4.8-10.8)
[2021-07-23 14:18] LABS: BACTERIA 1+; MUCOUS 1+; WBC 16-20 wbc/hpf (0-5)
[2021-07-23 14:57] LABS: ALKALINE PHOSPHATASE 86 U/L (45-117); BUN 18 mg/dl (7-24); CHLORIDE 109 mmol/L (98-107); CHOLESTEROL 137 mg/dL (<200); CREATININE 0.68 mg/dL (0.55-1.02); GAMMA GLUTAMYL TRANSPEPTIDASE 11 U/L (5-55); IRON 76 ug/dL (50-170); LDL CHOLESTEROL 62 mg/dL (9-159); POTASSIUM 4.1 mmol/L (3.5-5.1); SGOT/AST 23 IU/L (3-35); SGPT/ALT 28 U/L (12-78); SODIUM 142 mmol/L (136-145); TOTAL IRON BINDING CAPACITY 324 ug/dl (250-450); TOTAL PROTEIN 6.5 gm/dL (6.4-8.2); TRIGLYCERIDES 155 mg/dl (<150)
[2021-07-23 15:02] LABS: VITAMIN D, 25-HYDROXY 38.4 ng/mL (30-100)
== END | disposition home or self-care (01) ==
LOC: LAB 13:19
PROVIDERS: ATTEND Family Medicine
DX: E78.5 Hyperlipidemia, unspecified (principal); R79.89 Other specified abnormal findings of blood chemistry; R53.83 Other fatigue; E55.9 Vitamin D deficiency, unspecified; R74.8 Abnormal levels of other serum enzymes

== ENCOUNTER 2022-01-13 18:24 | Emergency (ER) | payer OTHER ==
[~2022-01-13] VITALS: Ht 157.4 cm; Wt 89.4 kg
[2022-01-13] MEDS ORDERED: OMNICEF300 MG PO (19:49)
== END 2022-01-13 19:53 | disposition home or self-care (01) ==
LOC: ED 18:24
DX: H92.02 Otalgia, left ear (principal); Z98.890 Other specified postprocedural states; Z79.899 Other long term (current) drug therapy; Z88.0 Allergy status to penicillin; Z88.8 Allergy status to other drugs, medicaments and biological substances

== ENCOUNTER 2022-01-28 16:31 | Emergency (ER) | payer OTHER ==
[~2022-01-28] VITALS: Wt 88.5 kg
[2022-01-28] MEDS ORDERED: FLONASE ALLERG9.9 ML NAS (19:14)
[2022-01-28] MEDS ORDERED: VIBRAMYCIN100 MG PO (19:14)
[2022-01-28] MEDS ORDERED: MEDROL DOSEPAK4 MG PO ×2 (19:55→19:56)
== END 2022-01-28 19:56 | disposition home or self-care (01) ==
LOC: ED 16:31
DX: H66.92 Otitis media, unspecified, left ear (principal); H69.82 Other specified disorders of Eustachian tube, left ear; Z88.0 Allergy status to penicillin; Z88.8 Allergy status to other drugs, medicaments and biological substances; Z79.899 Other long term (current) drug therapy; Z98.890 Other specified postprocedural states; Z98.51 Tubal ligation status; Z90.710 Acquired absence of both cervix and uterus

== ENCOUNTER → 2022-06-24 | Outpatient (CLI) | payer OTHER ==
[2022-06-24 11:18] LABS: BASO # 0.1 10*3/uL (0.0-0.1); EOS # 0.3 10*3/uL (0.0-0.4); EOS % 6.2 % (1.0-4.0); HEMATOCRIT 40.9 % (37.0-47.0); LYMPH # 1.2 10*3/uL (1.3-4.4); LYMPH % 23.6 % (27.0-41.0); MEAN CELL VOLUME 84.3 fl (81.0-99.0); MEAN CORPUSCULAR HGB 26.6 pg (27.0-31.0); MEAN CORPUSCULAR HGB CONC 31.5 g/dl (33.0-37.0); MEAN PLATELET VOLUME 12.9 fl (9.6-12.3); MONO # 0.4 10*3/uL (0.1-1.0); MONO % 7.6 % (3.0-9.0); NEUT # 3.1 10*3/uL (2.3-7.9); NEUT % 61.4 % (47.0-73.0); PLATELET COUNT AUTOMATED 217 10*3/uL (130-400); RED BLOOD COUNT 4.85 10*6/uL (4.10-5.10); RED CELL DISTRI WIDTH 13.2 % (0-14.5); RETICULOCYTE % 1.79 % (0.50-2.50)
[2022-06-24 11:44] LABS: T3 UPTAKE 21.5 % (22.4-36.7); THYROID STIM HORMONE (HS) 2.389 uIU/ml (0.550-4.780); THYROXINE (T4) TOTAL 7.7 ug/dl (4.5-10.9)
[2022-06-24 12:17] LABS: VITAMIN D, 25-HYDROXY 39.1 ng/mL (30-100)
== END | disposition home or self-care (01) ==
LOC: LAB 10:49
PROVIDERS: ATTEND Family Medicine
DX: E78.5 Hyperlipidemia, unspecified (principal); E55.9 Vitamin D deficiency, unspecified; R79.89 Other specified abnormal findings of blood chemistry; R53.83 Other fatigue; R74.8 Abnormal levels of other serum enzymes

== ENCOUNTER 2022-10-13 20:53 | Emergency (ER) | payer OTHER ==
[~2022-10-13] VITALS: Ht 157.4 cm; Wt 83.9 kg
[2022-10-13 22:16] LABS: BASO # 0.1 10*3/uL (0.0-0.1); BASO % 0.9 % (0.0-1.0); EOS # 0.3 10*3/uL (0.0-0.4); EOS % 3.8 % (1.0-4.0); HEMATOCRIT 41.6 % (37.0-47.0); LYMPH # 1.8 10*3/uL (1.3-4.4); LYMPH % 26.6 % (27.0-41.0); MEAN CELL VOLUME 81.3 fl (81.0-99.0); MEAN PLATELET VOLUME 12.7 fl (9.6-12.3); MONO # 0.5 10*3/uL (0.1-1.0); MONO % 7.8 % (3.0-9.0); NEUT # 4.1 10*3/uL (2.3-7.9); NEUT % 60.7 % (47.0-73.0); PLATELET COUNT AUTOMATED 243 10*3/uL (130-400); RED BLOOD COUNT 5.12 10*6/uL (4.10-5.10); RED CELL DISTRI WIDTH 13.2 % (0-14.5); WHITE BLOOD COUNT 6.7 10*3/uL (4.8-10.8)
[2022-10-13 22:29] LABS: ACT PARTIAL THROMBO TIME 25.6 SECONDS (20.0-32.1); INTERNATIONAL NORM RATIO 1.1 (2.0-3.5)
[2022-10-13 22:38] LABS: ALKALINE PHOSPHATASE 121 U/L (46-116); BUN 12 mg/dl (9-23); CHLORIDE 105 mmol/L (98-107); LIPASE 40 U/L (12-53); POTASSIUM 3.8 mmol/L (3.4-5.1); SGPT/ALT 12 U/L (10-49); TOTAL PROTEIN 7.1 gm/dL (6.0-8.0)
== END 2022-10-13 23:19 | disposition home or self-care (01) ==
LOC: ED 20:53
PROVIDERS: Internal Medicine
DX: S92.021A Displaced fracture of anterior process of right calcaneus, initial encounter for closed fracture (principal); Z88.0 Allergy status to penicillin; Z88.8 Allergy status to other drugs, medicaments and biological substances; Z79.899 Other long term (current) drug therapy; Z79.2 Long term (current) use of antibiotics; Z98.890 Other specified postprocedural states; Z90.711 Acquired absence of uterus with remaining cervical stump; X58.XXXA Exposure to other specified factors, initial encounter; Y93.89 Activity, other specified; Y92.89 Other specified places as the place of occurrence of the external cause; Y99.8 Other external cause status

== ENCOUNTER 2023-01-12 15:56 | Emergency (ER) | payer OTHER ==
[~2023-01-12] VITALS: Wt 83.9 kg
[2023-01-12] MEDS ORDERED: LEVOFLOXACIN750 M2 PO (16:23)
[2023-01-12] MEDS ORDERED: IBU800 M1 PO (16:23)
== END 2023-01-12 16:45 | disposition home or self-care (01) ==
LOC: ED 15:56
DX: H66.92 Otitis media, unspecified, left ear (principal); E78.00 Pure hypercholesterolemia, unspecified; Z88.0 Allergy status to penicillin; Z88.8 Allergy status to other drugs, medicaments and biological substances; Z98.51 Tubal ligation status; Z90.710 Acquired absence of both cervix and uterus; Z98.890 Other specified postprocedural states

== ENCOUNTER 2023-03-02 14:15 | Emergency (ER) | payer OTHER ==
[~2023-03-02] VITALS: Ht 157.4 cm; Wt 83.9 kg
[~2023-03-02 14:15] MED LIST changes: +LEVOFLOXACIN750 M2 PO
[2023-03-02] MEDS ORDERED: AVPAK AZITHROM250 M1 PO (14:34)
[2023-03-02] MEDS ORDERED: IBU800 M1 PO (14:34)
== END 2023-03-02 14:47 | disposition home or self-care (01) ==
LOC: ED 14:15
DX: J32.9 Chronic sinusitis, unspecified (principal); E78.00 Pure hypercholesterolemia, unspecified; Z88.0 Allergy status to penicillin; Z88.8 Allergy status to other drugs, medicaments and biological substances; Z98.890 Other specified postprocedural states; Z90.710 Acquired absence of both cervix and uterus; Z98.51 Tubal ligation status

== ENCOUNTER 2023-07-26 20:54 | Emergency (ER) | payer OTHER ==
[~2023-07-26] VITALS: Ht 157.4 cm; Wt 83.9 kg
[~2023-07-26 20:54] MED LIST changes: +AVPAK AZITHROM250 M1 PO
[2023-07-26] MEDS ORDERED: CEPHALEXIN500 M1 PO (22:08)
[2023-07-26] MEDS ORDERED: CEPHALEXIN 500 MG CAP PO ONE (22:10)
== END 2023-07-26 22:31 | disposition home or self-care (01) ==
LOC: ED 20:54
DX: L03.116 Cellulitis of left lower limb (principal); M77.32 Calcaneal spur, left foot; Z88.0 Allergy status to penicillin; Z88.8 Allergy status to other drugs, medicaments and biological substances; Z79.899 Other long term (current) drug therapy; Z79.2 Long term (current) use of antibiotics; Z98.890 Other specified postprocedural states; Z98.51 Tubal ligation status; Z90.711 Acquired absence of uterus with remaining cervical stump

== ENCOUNTER 2023-08-21 15:34 | Emergency (ER) | payer OTHER ==
[~2023-08-21] VITALS: Ht 157.4 cm; Wt 83.5 kg
[2023-08-21] MEDS ORDERED: CEPHALEXIN500 M1 PO (16:23)
== END 2023-08-21 16:33 | disposition home or self-care (01) ==
LOC: ED 15:34
DX: L03.116 Cellulitis of left lower limb (principal); E78.00 Pure hypercholesterolemia, unspecified; Z88.0 Allergy status to penicillin; Z88.8 Allergy status to other drugs, medicaments and biological substances; E87.6 Hypokalemia; Z98.890 Other specified postprocedural states; Z98.51 Tubal ligation status; Z90.710 Acquired absence of both cervix and uterus

== ENCOUNTER 2023-09-15 09:42 | Emergency (ER) | payer OTHER ==
[~2023-09-15] VITALS: Ht 157.4 cm; Wt 83.9 kg
[2023-09-15] MEDS ORDERED: ZITHROMAX250 MG PO (11:04)
== END 2023-09-15 11:41 | disposition home or self-care (01) ==
LOC: ED 09:42
DX: J32.9 Chronic sinusitis, unspecified (principal); E78.00 Pure hypercholesterolemia, unspecified; Z88.0 Allergy status to penicillin; Z88.8 Allergy status to other drugs, medicaments and biological substances; Z98.51 Tubal ligation status; Z90.710 Acquired absence of both cervix and uterus; Z98.890 Other specified postprocedural states; Z53.29 Procedure and treatment not carried out because of patient's decision for other reasons

== ENCOUNTER → 2024-09-21 | Outpatient (CLI) | payer OTHER ==
[2024-09-21 10:13] LABS: BASO # 0.1 10*3/uL (0.0-0.1); BASO % 1.0 % (0.0-1.0); EOS # 0.3 10*3/uL (0.0-0.4); EOS % 6.0 % (1.0-4.0); MEAN CELL VOLUME 83.1 fl (81.0-99.0); MEAN CORPUSCULAR HGB 25.9 pg (27.0-31.0); MEAN PLATELET VOLUME 12.9 fl (9.6-12.3); MONO # 0.4 10*3/uL (0.1-1.0); MONO % 8.0 % (3.0-9.0); NEUT # 3.2 10*3/uL (2.3-7.9); NEUT % 64.2 % (47.0-73.0); NUCLEATED RED BLOOD CELL 0.0 % (0.0-0.0); NUCLEATED RED BLOOD CELL 0.0 10*3/uL (0.0-0.0); PLATELET COUNT AUTOMATED 201 10*3/uL (130-400); RED CELL DISTRI WIDTH 13.3 % (0-14.5); RETICULOCYTE % 1.46 % (0.50-2.50)
[2024-09-21 10:51] LABS: BUN 12 mg/dl (9-23); GAMMA GLUTAMYL TRANSFERASE 11 U/L (0-38); LDL CHOLESTEROL 154 mg/dL (9-159); SGPT/ALT 8 U/L (5-49)
[2024-09-21 10:52] LABS: VITAMIN D, 25-HYDROXY 46.6 ng/mL (30-100)
[2024-09-21 13:13] LABS: BILIRUBIN Negative (Negative); BLOOD Negative (Negative); CLARITY Clear (Clear); COLOR Yellow (Yellow); KETONE Negative (Negative); LEUKO ESTERASE Negative (Negative); NITRITE Negative (Negative); PH 6.5 (4.5-8.0); SPECIFIC GRAVITY <= 1.005 (1.001-1.030); UROBILINOGEN 0.2 E.U./dl (0.0-1.0)
[2024-09-21 13:26] LABS: BACTERIA TRACE; WBC 0-2 wbc/hpf (0-5)
== END | disposition home or self-care (01) ==
LOC: LAB 09:41
PROVIDERS: ATTEND Family Medicine
DX: R06.02 Shortness of breath (principal); E78.5 Hyperlipidemia, unspecified; E55.9 Vitamin D deficiency, unspecified; R53.83 Other fatigue; R79.89 Other specified abnormal findings of blood chemistry; M47.814 Spondylosis without myelopathy or radiculopathy, thoracic region

== ENCOUNTER → 2025-02-08 | Outpatient (CLI) | payer OTHER | END | disposition home or self-care (01) | LOC: RAD 11:42 | PROVIDERS: ATTEND Family Medicine | DX: S90.02XA Contusion of left ankle, initial encounter (principal); M77.32 Calcaneal spur, left foot; X58.XXXA Exposure to other specified factors, initial encounter; Y93.89 Activity, other specified; Y92.89 Other specified places as the place of occurrence of the external cause; Y99.8 Other external cause status ==